=== PATIENT | male | born 1970 | race Caucasian/White ===

== ENCOUNTER 2020-01-04 12:08 | Emergency (ER) | payer BC, SELFPAY ==
[2020-01-04 12:09] VITALS: BP 141/90; PULSE 81; RESP 16; TEMP 36.7; O2SAT 96; BMI 26.6
--- NOTE | 2020-01-04 12:49 | ED.DCSUM_ITS ---
- ER Visit Summary Date of Service: 01/04/20 Chief Complaint: Ankle fracture History of Present Illness: The patient is a 49 M who was sent from radiology for a fracture to his left medial malleolus. This occurred after a log rolled onto his ankle. No other complaints. He is not filing Workmen's Compensation. Physical Examination: Medial malleolus tender to palpation. Skin intact. Range of motion intact. No significant out of proportion pain. No paresthesias. Strong pulses. Test Results: None performed Emergency Department Course and Treatment: I reviewed his outpatient imaging. He has a fracture that is nondisplaced in his medial malleolus. No dislocation. Mortise normal. No sign of compartment syndrome or other complications. Ortho-Glass splint was fabricated by me. The patient tolerated this well. Neurovascular intact distally afterwards. He was placed in a posterior splint and sugar tong splint. Crutches. Rest ice elevate. He declined narcotics. He will use [id number]-[id number] remedies. Follow-up with Dr. Miranda Treatment Plan: As above Disposition: Discharge Impression: Left ankle fracture medial malleolus, closed This note was generated with [employer] dictation software. It may contain incorrect words, spelling, and punctuation that were not noted in review of the chart prior to signing ED Disposition - Plan for ED Patient: Referrals: Sammie Whitney NP-C [Primary Care Provider] -
--- NOTE | 2020-01-04 12:51 | ED.DEP ---
ED Disposition - Plan for ED Patient: Instructions: ED Fracture Lower Extremity Referrals: Ifeoma Miranda DO [STAFF PHYSICIAN] -
== END 2020-01-04 13:14 | disposition home or self-care (01) ==
PROVIDERS: Emergency Provider Emergency Medicine; PCP Nurse Practitioner Family
DX: S82.55XA Nondisplaced fracture of medial malleolus of left tibia, initial encounter for closed fracture (principal); Z72.0 Tobacco use; W20.8XXA Other cause of strike by thrown, projected or falling object, initial encounter; Y93.89 Activity, other specified; Y92.89 Other specified places as the place of occurrence of the external cause; Y99.8 Other external cause status
CPT/HCPCS: 29515; 99283

== ENCOUNTER → 2020-01-04 | Outpatient (CLI) | payer BC, SELFPAY ==
--- NOTE | 2020-01-04 11:27 | RAD_ITS ---
ACR Level 3 findings have been noted. An addendum which confirms receipt of the report will follow. STUDY: X-RAY - LEFT ANKLE REASON FOR EXAM: Large log fell on leg/ankle, previous ankle fracture. TECHNIQUE: 3 view(s) of the ankle. COMPARISON: Radiographs 08/19/2014. FINDINGS: There is a new nondisplaced fracture of the medial malleolus, distal to the site of the previous healed medial malleolar fracture. Normal tibiotalar articulation and ankle mortise. Normal visualized talus and calcaneus. The visualized subtalar, talonavicular, calcaneocuboid and tarsal articulations are normal. There is soft tissue swelling at the medial aspect of the ankle. RAD/Ankle min 3 Views IMPRESSION: New nondisplaced fracture of the medial malleolus. Electronically Signed: Rajan Johnston MD at 12:23 EDT Tel , Service support ,
--- NOTE | 2020-01-04 11:30 | RAD_ITS ---
STUDY: X-RAY - LEFT TIBIA AND FIBULA REASON FOR EXAM: Large log fell on leg/ankle, previous ankle fracture. TECHNIQUE: 2 view(s) of the tibia and fibula were obtained. COMPARISON: None. FINDINGS: There is a new nondisplaced fracture of the medial malleolus. Normal visualized fibula. There is soft tissue swelling at the medial aspect of the ankle. RAD/Tibia & Fibula 2 Views IMPRESSION: New nondisplaced fracture of the medial malleolus. Electronically Signed: Rajan Johnston MD at 12:21 EDT Tel , Service support ,
== END | disposition home or self-care (01) ==
LOC: RAD 11:26
PROVIDERS: Referring Provider Nurse Practitioner Family; Visit Provider Nurse Practitioner Family
DX: M79.605 Pain in left leg (principal)
CPT/HCPCS: 73590; 73610

== ENCOUNTER 2020-01-05 05:23 | Day surgery (SDC) | payer BC, SELFPAY ==
[2020-01-04 14:37] VITALS: BMI 26.6
[2020-01-05] VITALS (10 sets, daily range): BP systolic 97–121; BP diastolic 62–79; PULSE 46–64; RESP 14–16; TEMP 36.3–36.7; O2SAT 92–99; BMI 28.3
--- NOTE | 2020-01-05 05:30 | EKG12_ITS ---
Test Reason : PREOP Blood Pressure : / mmHG Vent. Rate : 064 BPM Atrial Rate : 064 BPM P-R Int : 142 ms QRS Dur : 084 ms QT Int : 392 ms P-R-T Axes : 068 -26 -10 degrees QTc Int : 404 ms Normal sinus rhythm with sinus arrhythmia Normal ECG No previous ECGs available Confirmed by ARLINE AVILES ([id number]), greeting card editor REINA WILSON ([id number]) on 01/06/2020 12:06:26 PM Referred By: Ifeoma Miranda Confirmed By:ARLINE AVILES
[2020-01-05 06:04] LABS: Hematocrit 42.7 % (40-54); Hemoglobin 14.3 g/dL (13.0-16.5); Mean Corp Hgb Conc 33.5 g/dL (32-36); Mean Corpuscular Hgb 31.6 pg (27.0-32.0); Mean Corpuscular Volume 94.3 fL (80-94); Mean Platelet Vol. 9.8 fl (6.2-12.0); Platelet Count 210 K/mm3 (150-450); RBC Distribution Width CV 12.5 % (11.6-14.6); RBC Distribution Width SD 43.2 fl (35.1-43.9); Red Blood Count 4.53 M/mm3 (4.6-6.2); White Blood Count 7.7 K/mm3 (4.4-11.0)
[2020-01-05] MEDS: Lactated Ringers 1,000 ML 100 ML IV ×2 (06:43→10:33)
[2020-01-05] MEDS: Cefazolin 2 GM in 0.9% Normal Saline 100 ML IV (07:30)
--- NOTE | 2020-01-05 07:30 | RAD_ITS ---
STUDY: X-RAY - LEFT ANKLE REASON FOR EXAM: ORIF left ankle fracture. TECHNIQUE: 2 intraoperative images of the ankle. COMPARISON: Radiographs 01/04/2020. FINDINGS: There are 2 orthopedic screws transfixing a medial malleolar fracture in anatomical alignment and position. Electronically Signed: Rajan Johnston MD at 10:34 EDT Tel , Service support , RAD/Ankle min 3 Views
[2020-01-05] MEDS: Mupirocin Ointment 22gm Tube 1 APPLIC (08:55)
--- NOTE | 2020-01-05 09:19 | PCM.HP.BLA ---
History and Physical I have re-examined the patient. There are no clinical changes since date of exam. Intake Vital Signs 01/04/20 BMI 26.6 Intake Visit Reasons: LEFT ANKLE Allergies No Known Allergies Allergy (Verified 01/04/20 12:11) Medications ibuprofen 600 mg tablet 600 ea PO PRN PRN 01/04/20 [History Confirmed 01/04/20] PFSH Social History (Updated 01/04/20 @ 15:[address] Ifeoma Miranda DO) Smoking Status: Current every day smoker HPI LEFT ANKLE: Surgical H&P: Yes Details: Parts of this documentation were recorded by a scribe, this documentation accurately reflects the service provided and the decisions made by me, Dr. Ifeoma Miranda DO 01/04/20 1355. SHRUTHI FELDMAN is a 49 year old M here today for left ankle fracture. Referred by [facility]. Patient states he was cutting logs and a log rolled onto his foot and he had instant pain and went to the ER. He states he had a previous fx 2 years ago in the same spot and Denies any difficulty until this recent re-injury. Denies numbness, tingling or other associated symptoms. He has placed in a splint at the ER and had x-rays taken. ROS Musc Reports joint pain, Reports joint swelling, Reports limited joint movement, Denies radiating pain into limb, Denies stiffness, Denies tingling Skin/Breast Denies lesions, Denies rash, Denies skin pain, Denies wounds Neuro Yes radiating pain, No tingling Ortho Exam Left Foot/Ankle Date of injury: 01/04/20 Skin: No Ecchymosis, Soft Tissue Swelling or Erythema Exam: No Ecchymosis, Soft tissue swelling or Erythema ANKLE: unable to preform exam secondary to split just being applied at the ER. Splint is clean dry and intact. Assessment & Plan Problems 1. Closed nondisplaced fracture of medial malleolus of left tibia, initial encounter S82.55XA 2. Syndesmotic disruption of left ankle, initial encounter S93.432A Plan Personally reviewed patients x-rays of the left ankle and left tib/fib. Educated that he has a medial malleolus fracture along with a fibula fracture indicating that he has an unstable fracture and this may have cause ligament tearing. Recommended an MRI of the patients ankle to see if he has any ligament tearing along with the fractures. Patient educated that if he does not have any ligament tearing then we can cast him but if he has a ligament tear then he will require surgery. Reviewed the pre-operative plans with the patient. Risks and benefits of the procedure were fully explained, including but not limited to infection, neurovascular injury, continued pain, arthritis, stiffness, need for further surgery, re-injury, DVT, PE, general risks of anesthesia, and loss of limb or life. The patient understands all the risks and does wish to proceed with written consent. Patient wishes to proceed with surgery for a left ankle open reduction syndesmotic internal fixation. Follow up 2 weeks post op or sooner if pain, swelling, numbness or associated symptoms, or concerns develop. All questions answered. Patient in agreement of plan. We discussed the current risk associated COVID-19. While it is understood that there is a community spread of COVID 19 the risk of heather COVID-19 while at [facility] is very low, however, the risk cannot be completely mitigated because of the community spread of the disease. We discussed in detail the risk of exposure to and or potential harm posed by the COVID-19 virus with having a surgery/procedure at this time versus the risk of delaying the surgery/procedure. Is not possible to know either the risk of delaying the surgery procedure or chance of getting an infection with perfect accuracy, but a joint decision was made to proceed at this time with a schedule surgery/procedure as indicated on the consent form. Patient was notified that we will need to comply with any screening or testing [facility] wishes to perform or that surgery may be delayed for any positive results. Coding Level of Care Code Off vis,new,level 3 Diagnoses Closed nondisplaced fracture of medial malleolus of left tibia, initial encounter S82.55XA ??Encounter type: initial encounter ??Fracture alignment: nondisplaced Syndesmotic disruption of left ankle, initial encounter S93.432A ??Encounter type: initial encounter COVID (Procedure Consent) Procedure Criteria Procedure Criteria: No Elective
--- NOTE | 2020-01-05 09:20 | DCINST_ITS ---
Discharge Diet: No Restrictions - Keep dressing clean dry and intact, nonweightbearing left leg, follow-up in 2 weeks, if dressing or splint gets dirty please change dressing and notify physician, call with concerns Discharge Activity: May Not Drive May shower in (days): 1 Ice area for (Minutes): 20 - Every hour while awake. Weight Bearing Status: Weight bearing as tolerated Keep extremity elevated above heart level: Operative Extremity Call your doctor if your incision/area has: Continuous Slow Oozing, Sudden Increased Bleeding, Increased Pain/ Swelling, Increased Redness, Foul Smelling Discharge Call your doctor if you observe: Fever of 101 or Higher, Coldness, Increased Pain, Numbness or Tingling, Change in Color, Calf discomfort Allergies/Adverse Reactions: Allergies No Known Allergies Allergy (Verified 01/04/20 12:11) Medications to take at Discharge ibuprofen 600 mg tablet 600 ea PO PRN PRN 01/04/20 Primary Care Physician: Sammie Whitney NP-C [Primary Care Provider] - Test Results: Test results from this visit will be discussed in further detail at your follow- up appointment, if applicable. Please Follow Up With: Ifeoma Miranda, DO - [phone]
--- NOTE | 2020-01-05 09:20 | PCM.OPRPT ---
Report of Operation Date of Procedure: 01/05/20 Pre-Operative Diagnosis: Left ankle medial mall and proximal fibula fracture Post-Operative Diagnosis: Same Surgery/Procedure Performed:: ORIF left medial mall, Intra-Op syndesmotic test negative telex operator: Mehul Silva Type of Anesthesia:: Spinal Anesthesiologist: Aleksandar Jaquez Estimated Blood Loss (mL): min Fluids Replaced: 800cc lr Description of Procedure: Preop note Patient is a 49-year-old male sustained a logging injury to his left ankle yesterday. Patient had immediate pain x-rays confirmed a medial malleolus fracture healed the proximal medial mall his fracture and a proximal fibula fracture. Unsure due to the mechanism whether not this is a isra new variant or a pronation external rotation were Ortho direct injury to the proximal fibula as it is a transverse nature of fracture of the proximal fibula we did discuss all options. Discussed with patient getting an MRI and if the ligaments are intact treating him with a cast. Patient is not interested in trying a cast as he like to get more mobile as soon as possible he also did not want a weight to get the results of an MRI would rather have the medial mall fixed Intra-Op and then the syndesmotic tested to see if it widened and if there was ligament instability and need for syndesmotic fixation. We did discuss risks benefits and alternatives surgery. Risk include but not limited to blood loss, blood clot, infection, neurovascular, failure procedure, loss of life and loss of limb. Patient is aware would like to proceed with left medial mall open reduction internal fixation syndesmotic testing possible syndesmotic fixation. We discussed the current risk associated COVID-19. While it is understood that there is a community spread of COVID 19 the risk of heather COVID-19 while at [facility] is very low, however, the risk cannot be completely mitigated because of the community spread of the disease. We discussed in detail the risk of exposure to and or potential harm posed by the COVID-19 virus with having a surgery/procedure at this time versus the risk of delaying the surgery/procedure. Is not possible to know either the risk of delaying the surgery procedure or chance of getting an infection with perfect accuracy, but a joint decision was made to proceed at this time with a schedule surgery/procedure as indicated on the consent form. Patient was notified that we will need to comply with any screening or testing [facility] wishes to perform or that surgery may be delayed for any positive results. Operative note Patient seen and examined preoperative holding area. Left ankle was marked. Patient brought to the operating room placed supine on the operating table. Sign, anesthesia, antibiotics were administered. All bony prominences well-padded SCDs placed on his bilateral lower external lower extremity. The left leg was prepped and draped in usual sterile technique with a tourniquet around his upper thigh. We then marked out our incision on over the medial mall using fluoroscopy as well and created a curvilinear incision starting anterior going distal and proximal and posterior.. The left leg was elevated same any triggers rates her pressure 250 torr. We then used a 15 blade to make her incision after timeout was performed. Dissected down tenotomies to level of the medial mall. We then used pointed reduction clamps to reduce the fracture site. Please note that all neurovascular structures were protected all times during the case. We then placed 2 guidewires starting anterior and aiming posterior. We had good fixation of the medial mall at that point. We then over drilled the fractures up to the fracture site. We then measured and placed a 46 to 46 mm 4-0 cannulated screws. We confirmed in both AP and lateral planes good reduction of the fracture site. We then irrigated the incision with copious muscle sterile saline. We then performed stress test in order to determine whether or not the syndesmosis widening which he did not. We then closed the incision we irrigated again and closed the incision with subcuticularly with 3-0 Vicryl and 4-0 nylon to the skin sterile dressings and a splint was applied to the left lower extremity. Tourniquet was deflated. Patient taught procedure well no complication transferred recovery room in stable condition. Postoperative note Nonweightbearing left leg follow-up in 2 weeks Patient does not want narcotics states he will take Tylenol and ibuprofen as needed Discussed with girlfriend Елена Elevate ice and wiggle toes as much as possible Call with concerns This note was generated with [employer] software. It may contain incorrect words, spelling, and punctuation that were not noted in checking the note before signing.
== END 2020-01-05 11:54 | disposition home or self-care (01) ==
LOC: SDC 05:26 → AC 05:27
PROVIDERS: Anesthesiology; PCP Nurse Practitioner Family; Referring Provider Orthopaedic Surgery; Visit Provider Orthopaedic Surgery
PROC: (CPT 27766; principal; 2020-01-05 07:10)
DX: S82.52XA Displaced fracture of medial malleolus of left tibia, initial encounter for closed fracture (principal); S82.832A Other fracture of upper and lower end of left fibula, initial encounter for closed fracture; F17.200 Nicotine dependence, unspecified, uncomplicated; W20.8XXA Other cause of strike by thrown, projected or falling object, initial encounter; Y93.89 Activity, other specified; Y92.89 Other specified places as the place of occurrence of the external cause; Y99.8 Other external cause status
CPT/HCPCS: 27766; 73610; 76000; 85027; 87635; 93005; C1713; G2023; J7120; U0003

== ENCOUNTER → 2020-01-18 | Outpatient (CLI) | payer BC, SELFPAY ==
[2020-01-05 06:17] VITALS: BMI 28.3
--- NOTE | 2020-01-18 10:02 | RAD_ITS ---
STUDY: X-RAY - LEFT ANKLE REASON FOR EXAM: Follow-up ORIF of fracture. TECHNIQUE: 3 view(s) of the ankle. COMPARISON: Intraoperative images 01/05/2020. FINDINGS: There are 2 orthopedic screws transfixing a medial malleolar fracture in anatomical alignment and position. Normal tibiotalar articulation and ankle mortise. Normal visualized talus and calcaneus. The visualized subtalar, talonavicular, calcaneocuboid and tarsal articulations are normal. There is an overlying cast. RAD/Ankle min 3 Views IMPRESSION: ORIF of medial malleolar fracture without interval change. Electronically Signed: Rajan Johnston MD at 10:40 EDT Tel , Service support ,
== END | disposition home or self-care (01) ==
LOC: HPRAD 10:02
PROVIDERS: PCP Nurse Practitioner Family; Referring Provider Orthopaedic Surgery; Visit Provider Orthopaedic Surgery
DX: S82.52XA Displaced fracture of medial malleolus of left tibia, initial encounter for closed fracture (principal); S93.432A Sprain of tibiofibular ligament of left ankle, initial encounter
CPT/HCPCS: 73610

== ENCOUNTER → 2020-02-15 08:25 | Outpatient (CLI) | payer BC, SELFPAY ==
[2020-01-18 11:51] VITALS: BMI 28.3
--- NOTE | 2020-02-15 08:25 | RAD_ITS ---
STUDY: X-RAY - LEFT ANKLE REASON FOR EXAM: Follow-up ORIF of left ankle fracture. TECHNIQUE: 3 view(s) of the ankle. COMPARISON: Radiographs 01/18/2020. FINDINGS: There are 2 orthopedic screws transfixing a medial malleolar fracture in anatomical alignment and position. There is a nondisplaced healing fracture of the distal fibular diaphysis. Normal tibiotalar articulation and ankle mortise. Normal visualized talus and calcaneus. The visualized subtalar, talonavicular, calcaneocuboid and tarsal articulations are normal. There is mild soft tissue swelling overlying the medial malleolus. RAD/Ankle min 3 Views IMPRESSION: No interval change of ORIF of medial malleolar fracture. Nondisplaced healing fracture of the distal fibular diaphysis. Electronically Signed: Rajan Johnston MD at 10:06 EDT Tel , Service support ,
== END ==
PROVIDERS: PCP Nurse Practitioner Family; Referring Provider Orthopaedic Surgery; Visit Provider Orthopaedic Surgery
DX: Z47.89 Encounter for other orthopedic aftercare (principal)
CPT/HCPCS: 73610